=== PATIENT | male | born 1995 | race Caucasian/White ===

== ENCOUNTER 2022-10-08 03:33 | Emergency (ER) | payer OTHER, SELFPAY ==
[2022-10-08 03:36] VITALS: BP 120/75; PULSE 70; RESP 14; TEMP 36.6; O2SAT 100
[2022-10-08 03:43] VITALS: BP 113/71; PULSE 66; RESP 15; TEMP 36.4; O2SAT 99
[2022-10-08] MEDS: Please add drug allergy info to patient profile. 1 EACH XX (03:56)
[2022-10-08] MEDS: FAMOTIDINE 20 MG TABLET 40 MG PO (03:57)
[2022-10-08] MEDS: predniSONE 20 MG TABLET 40 MG PO (03:57)
[2022-10-08] MEDS: diphenhydrAMINE HCl CAP 25 MG CAPSULE PO (03:57)
--- NOTE | 2022-10-08 04:31 | ED.ALLEREA ---
HPI - Allergic Reaction General Chief complaint: Allergic Reaction Stated complaint: axr Time Seen by Provider: 10/08/22 03:44 History of Present Illness HPI narrative: This is a 27-year-old male, who denies significant past medical history, who presents to the emergency department complaining of rash for the past day. The patient states he is visiting his mother who uses a different laundry detergent than he does. Throughout the day, he noticed development of an itchy rash across the abdomen, back and bilateral legs. He denies associated wheezes, difficulty breathing, abdominal pain, vomiting or diarrhea Related Data Allergies Allergy/AdvReac Type Severity Reaction Status Date / Time No Known Allergies Allergy Verified 10/08/22 03:56 Review of Systems Review of Systems: CONSTITUTIONAL: Denies fever, chills, or sweats. CARDIOVASCULAR: Denies chest pain, palpitations, or edema. RESPIRATORY: Denies cough or dyspnea. GASTROINTESTINAL: Denies abdominal pain, nausea, vomiting, or diarrhea. SKIN: Diffuse rash and itching MUSCULOSKELETAL: Denies back pain, joint pain, or myalgia. NEUROLOGIC: Denies headache, numbness, dizziness, or weakness. PSYCHIATRIC: Denies anxiety or depression. PMFSH Past Medical History Medical History (Updated 10/08/22 @ 04:35 by Taj Little MD) No significant past medical history Surgical History Surgical History (Updated 10/08/22 @ 04:33 by Taj Little MD) No significant past surgical history Social History Social History (Updated 10/08/22 @ 04:33 by Taj Little MD) Smoking status: Never smoker Alcohol intake: never Substance use: never Exam Narrative: GENERAL: Well-developed, well-nourished, and in no acute distress. HEAD: Normocephalic, atraumatic. EYES: PERRLA and EOMI. ENT: Nares clear, no rhinorrhea or epistaxis. Mucous membranes moist. Oropharynx without tonsillar hypertrophy exudate or other lesions. CHEST: Clear to auscultation. No respiratory distress. No wheezes rales or rhonchi HEART: Regular rate and rhythm. No murmur heard. Normal peripheral pulses. ABDOMEN: Soft, nontender, nondistended, normal active bowel sounds. EXTREMITIES: Normal range of motion. No edema. SKIN: Diffuse urticarial rash, over the back, abdomen, and bilateral thighs. Skin otherwise warm, and dry NEURO: No focal deficits. Alert and oriented x3. PSYCH: Normal mood and affect. Course Course Emergency Course: 04:45 - On reevaluation, the patient states his symptoms have slightly improved and have not worsened. The patient's urticaria appears slightly improved compared to initial examination. Will discharge with a course of prednisone and antihistamines. Discussed return and emergency precautions including signs/symptoms of anaphylaxis and airway compromise. The patient voiced understanding and is comfortable with the plan. All questions answered to his satisfaction Vital Signs Vital signs: Vital Signs Temperature 97.9 F 10/08/22 03:36 Pulse Rate 70 10/08/22 03:36 Respiratory Rate 14 10/08/22 03:36 Blood Pressure 120/75 10/08/22 03:36 Pulse Oximetry 100 10/08/22 03:36 Oxygen Delivery Room Air 10/08/22 03:36 Temperature 97.6 F 10/08/22 03:43 Pulse Rate 66 10/08/22 03:43 Respiratory Rate 15 10/08/22 03:43 Blood Pressure 113/71 10/08/22 03:43 Pulse Oximetry 99 10/08/22 03:43 Oxygen Delivery Room Air 10/08/22 03:43 MDM - Allergic Reaction MDM Narrative Medical decision making narrative: Plan: Steroids, antihistamines, reassess Differential Diagnosis Differential diagnosis: Likely allergic reaction, contact dermatitis, urticaria and other Discharge Plan Discharge Clinical Impression: Urticaria Patient Disposition: Home, Self-Care Condition: Stable Instructions: Antibiotic Form, Urticaria (ED) Additional Instructions: You were seen in the emergency department. Your exam is consistent w
[2022-10-08 04:57] VITALS: BP 111/67; PULSE 83; RESP 15; O2SAT 99
== END 2022-10-08 04:59 | disposition home or self-care (01) ==
PROVIDERS: Emergency Provider Preventive Medicine Aerospace Medicine
DX: L50.9 Urticaria, unspecified (principal)
CPT/HCPCS: 99283; A9270; J7512